=== PATIENT | male | born 1980 | race Caucasian/White ===

== ENCOUNTER 2016-12-18 20:56 | Emergency (ER) | payer SELFPAY | END 2016-12-19 01:03 | disposition home or self-care (01) | LOC: D.ER 20:56 | DX: S66.812A Strain of other specified muscles, fascia and tendons at wrist and hand level, left hand, initial encounter (principal); X58.XXXA Exposure to other specified factors, initial encounter ==

== ENCOUNTER 2017-08-17 10:17 | Emergency (ER) | payer MEDICAID | END 2017-08-17 11:01 | disposition home or self-care (01) | LOC: D.ER 10:17 | DX: K08.89 Other specified disorders of teeth and supporting structures (principal); K04.7 Periapical abscess without sinus; F17.200 Nicotine dependence, unspecified, uncomplicated ==

== ENCOUNTER 2020-01-13 19:59 | Emergency (ER) | payer MEDICAID ==
[~2020-01-13] VITALS: Ht 175.3 cm; Wt 90.0 kg
[2020-01-13 20:12] VITALS: BP 118/67; Ht 175.3 cm; Wt 90.0 kg
[2020-01-13] MEDS ORDERED: VOLTAREN75 MG PO (21:26)
[2020-01-13] MEDS ORDERED: BACLOFEN20 M1 PO (21:26)
== END 2020-01-13 21:51 | disposition home or self-care (01) ==
LOC: D.ER 19:59
DX: M79.604 Pain in right leg (principal); M79.89 Other specified soft tissue disorders; E78.5 Hyperlipidemia, unspecified